=== PATIENT | female | born 1990 | race Caucasian/White ===

== ENCOUNTER 2017-10-21 21:42 | Emergency (ER) | payer OTHER ==
[~2017-10-21] VITALS: Ht 152.4 cm; Wt 68.0 kg
[2017-10-21 21:46] VITALS: Ht 152.4 cm; Wt 68.0 kg
[2017-10-21 23:55] VITALS: BP 124/73
== END 2017-10-21 23:55 | disposition home or self-care (01) ==
LOC: ED 21:42
DX: R10.30 Lower abdominal pain, unspecified (principal); R10.13 Epigastric pain; R11.2 Nausea with vomiting, unspecified
CPT/HCPCS: J1885; Q0162

== ENCOUNTER 2019-11-16 16:53 | Emergency (ER) | payer OTHER ==
[~2019-11-16] VITALS: Ht 142.2 cm; Wt 62.6 kg
[2019-11-16 16:58] VITALS: Ht 142.2 cm; Wt 62.6 kg
[2019-11-16 18:23] LABS: BASOPHIL % 0.4 % (0-2); PLATELET COUNT 289 x10^3mcL (130-400); RED CELL DISTRIBUTION WIDTH 13.1 % (11.5-14.5)
[2019-11-16 18:34] LABS: ALBUMIN 3.7 g/dL (3.4-5.0); ALKALINE PHOSPHATASE 86 U/L (46-116); ALT/SGPT 20 U/L (14-59); AST/SGOT 16 U/L (15-37); BILIRUBIN TOTAL 1.49 mg/dL (0.20-1.00); C REACTIVE PROTEIN 3.7 mg/dL (<=0.9); CALCIUM 8.5 mg/dL (8.5-10.1); CARBON DIOXIDE 25.9 mmol/L (21-32); CHLORIDE SERUM 103 mmol/L (98-107); CREATININE SERUM 0.8 mg/dL (0.6-1.0); GFR1 > 60 mL/min; GLUCOSE SERUM 89 mg/dL (74-106); POTASSIUM SERUM 3.1 mmol/L (3.5-5.1); SODIUM SERUM 139 mmol/L (136-145); TOTAL PROTEIN, SERUM 7.2 g/dL (6.4-8.2)
[2019-11-16 19:28] LABS: UA SPECIFIC GRAVITY 1.025 (1.005-1.035); microscopic required? YES; urine erythrocyte 3+ (NEGATIVE)
[2019-11-16 19:32] LABS: ERYTHROCYTE SED RATE 22 mm/hr (0-20)
[2019-11-16 22:11] VITALS: BP 129/71
== END 2019-11-16 22:11 | disposition home or self-care (01) ==
LOC: ED 16:53
PROVIDERS: Specialist
DX: N39.0 Urinary tract infection, site not specified (principal)
CPT/HCPCS: J0696; J1885; J7060